=== PATIENT | female | born 1965 | race Two or more races ===

== ENCOUNTER 2023-01-21 01:03 | Inpatient (IN) | payer MEDICAID ==
[~2023-01-21] VITALS: Ht 152.4 cm; Wt 81.8 kg
[2023-01-21 01:50] LABS: Basophils # (auto) 0.1 10 ^3/uL (0-0.2); Basophils % (auto) 0.8 % (0.0-2.0); Eosinophils # (auto) 0.1 10 ^3/uL (0-0.8); Eosinophils % (auto) 0.8 % (0.0-7.0); Hematocrit 42.6 % (36.0-46.0); Hemoglobin 13.9 g/dL (12.2-16.2); Lymphocytes # (auto) 2.9 10 ^3/uL (0.4-5.4); Lymphocytes % (auto) 25.2 % (10.0-50.0); Mean Corpuscular Hemoglobin 29.8 pg (28.0-32.0); Mean Corpuscular Hgb Conc. 32.6 g/dL (32.0-36.0); Mean Corpuscular Volume 91.3 fL (80.0-100.0); Monocytes # (auto) 0.8 10 ^3/uL (0-1.3); Monocytes % (auto) 6.8 % (0.0-12.0); Neutrophils # (auto) 7.7 10 ^3/uL (1.6-8.6); Neutrophils % (auto) 66.4 % (37.0-80.0); Red Blood Cells 4.67 10^6/uL (4.0-5.20); Red Cell Distribution Width 14.8 % (11.8-14.3); White Blood Cell 11.6 10^3/uL (4.4-10.8)
[2023-01-21 02:09] LABS: INR 0.94 (0.9-1.15); Partial Thromboplastin Time 26.5 SEC (24.5-34.5); Prothrombin Time 9.9 sec (9.3-11.8)
[2023-01-21 02:19] LABS: Alanine Aminotransferase 15 U/L (7-40); Albumin 4.3 g/dL (3.2-4.8); Alkaline Phosphatase 101 U/L (46-116); Anion Gap 6 (5-15); Aspartate Aminotransferase < 8 U/L (13-40); BUN/Creatinine Ratio 15.9 (10.0-20.0); Blood Urea Nitrogen 10 mg/dL (9-23); Calcium 9.1 mg/dL (8.7-10.4); Carbon Dioxide 26 mmol/L (20-30); Chloride 109 mmol/L (98-107); Glucose 114 mg/dL (74-106); Magnesium 1.9 mg/dL (1.6-2.6); Potassium 3.3 mmol/L (3.5-5.1); Sodium 141 mmol/L (136-145)
[2023-01-21 02:20] LABS: Bilirubin, Total 0.3 mg/dL (0.2-1.0); Total Protein 6.9 g/dL (5.7-8.2)
[2023-01-21] MEDS ORDERED: NITROGLYCERIN 0.4 MG SL TAB SL ONE (08:15)
[2023-01-21] MEDS ORDERED: LIDOCAINE VISCOUS 2% 15ML UD PO ONE (08:45)
[2023-01-21] MEDS ORDERED: MAALOX PLUS or MAALOX 30 ML PO ONE (08:45)
[2023-01-21] MEDS ORDERED: DONNATAL 5ml ORAL Elix (BELLADONNA ALK-PHENOBARB) PO ONE (08:45)
[2023-01-21] MEDS ORDERED: ACETAMINOPHEN 325 MG TAB PO ONE (08:45)
[2023-01-21] MEDS ORDERED: POTASSIUM EFFERVESENT TAB 25 MEQ PO ONE (12:00)
[2023-01-21] MEDS ORDERED: MORPHINE SULFATE 4 MG/ML SYR/VIAL IV PRN (12:00)
[2023-01-21] MEDS ORDERED: NITROGLYCERIN 0.4 MG SL TAB SL PRN (12:00)
[2023-01-21] MEDS ORDERED: ONDANSETRON HCL 4 MG/2 ML VIAL IV PRN (12:00)
[2023-01-21 12:27] LABS: INR 1.03 (0.9-1.15); Prothrombin Time 10.8 sec (9.3-11.8)
[2023-01-21] MEDS: ACETAMINOPHEN 325 MG TAB PO PRN (14:40)
[2023-01-21] MEDS: NICOTINE 21MG/24 HR TOPICAL PATCH TD SCH (16:59)
[2023-01-21] MEDS: HYDROcodone-ACET 5/325MG TAB PO PRN (17:00)
[2023-01-21 17:12] VITALS: PULSE 84; RESP 18; O2SAT 97
[2023-01-21 19:22] VITALS: PULSE 92; RESP 16; O2SAT 98
[2023-01-21] MEDS ORDERED: IOHEXOL 350 MG/ML 100ML IJ ONE (20:44)
[2023-01-21] MEDS: ENOXAPARIN SOD 80 MG/0.8ML SYRINGE SC SCH (21:52)
[2023-01-21] MEDS: ATORVASTATIN 20 MG TAB PO SCH (21:53)
[2023-01-22 06:14] LABS: Basophils # (auto) 0.1 10 ^3/uL (0-0.2); Basophils % (auto) 1.2 % (0.0-2.0); Eosinophils # (auto) 0.4 10 ^3/uL (0-0.8); Eosinophils % (auto) 4.7 % (0.0-7.0); Hematocrit 43.9 % (36.0-46.0); Hemoglobin 14.3 g/dL (12.2-16.2); Lymphocytes # (auto) 3.2 10 ^3/uL (0.4-5.4); Lymphocytes % (auto) 35.2 % (10.0-50.0); Mean Corpuscular Hemoglobin 30.2 pg (28.0-32.0); Mean Corpuscular Hgb Conc. 32.6 g/dL (32.0-36.0); Mean Corpuscular Volume 92.6 fL (80.0-100.0); Monocytes # (auto) 0.8 10 ^3/uL (0-1.3); Monocytes % (auto) 8.4 % (0.0-12.0); Neutrophils # (auto) 4.6 10 ^3/uL (1.6-8.6); Neutrophils % (auto) 50.5 % (37.0-80.0); Nucleated Red Blood Cells % 0.1 %; Red Blood Cells 4.75 10^6/uL (4.0-5.20); Red Cell Distribution Width 14.9 % (11.8-14.3); White Blood Cell 9.1 10^3/uL (4.4-10.8)
[2023-01-22 06:33] LABS: Alanine Aminotransferase 16 U/L (7-40); Albumin 4.1 g/dL (3.2-4.8); Alkaline Phosphatase 98 U/L (46-116); Anion Gap 6 (5-15); Aspartate Aminotransferase 10 U/L (13-40); BUN/Creatinine Ratio 10.9 (10.0-20.0); Bilirubin, Total 0.4 mg/dL (0.2-1.0); Blood Urea Nitrogen 7 mg/dL (9-23); Carbon Dioxide 26 mmol/L (20-30); Chloride 108 mmol/L (98-107); Glucose 89 mg/dL (74-106); Potassium 4.4 mmol/L (3.5-5.1); Sodium 140 mmol/L (136-145); Total Protein 6.6 g/dL (5.7-8.2)
[2023-01-22] MEDS: DOCUSATE SOD 100 MG CAP PO SCH (10:37)
[2023-01-22] MEDS: ENOXAPARIN SOD 80 MG/0.8ML SYRINGE SC SCH (10:37)
[2023-01-22] MEDS: HYDROcodone-ACET 5/325MG TAB PO PRN ×2 (10:37→20:12)
[2023-01-22] MEDS: ASPirin 81 mg TAB PO SCH (10:37)
[2023-01-22] MEDS: NICOTINE 21MG/24 HR TOPICAL PATCH TD SCH (10:38)
[2023-01-22] MEDS: ACETAMINOPHEN 325 MG TAB PO PRN ×2 (14:13→22:39)
[2023-01-22 16:30] LABS: Triglycerides 165 mg/dL (< 150)
[2023-01-22 16:31] LABS: LDL Cholesterol 124 mg/dL (< 100)
[2023-01-22 16:33] LABS: Cholesterol 190 mg/dL (< 200); HDL Cholesterol 50 mg/dL (40-59)
[2023-01-22 19:30] VITALS: PULSE 97; RESP 20; O2SAT 95
[2023-01-22] MEDS: ATORVASTATIN 20 MG TAB PO SCH (22:24)
[2023-01-22] MEDS: ENOXAPARIN SOD 40 MG/0.4 ML SYRINGE SC SCH (22:42)
[2023-01-23] MEDS: HYDROcodone-ACET 5/325MG TAB PO PRN ×2 (07:04→14:39)
[2023-01-23] MEDS ORDERED: ADENOSINE 69 MG in GIVE UN-DILUTED 0 ML IV STA (07:48)
[2023-01-23 07:50] VITALS: PULSE 68; RESP 15; O2SAT 97
[2023-01-23] MEDS ORDERED: PANTOPRAZOLE 40 MG/10 ML VIAL INJ IV SCH (10:00)
[2023-01-23] MEDS: ASPirin 81 mg TAB PO SCH (10:48)
[2023-01-23] MEDS: DOCUSATE SOD 100 MG CAP PO SCH (10:48)
[2023-01-23] MEDS: ENOXAPARIN SOD 40 MG/0.4 ML SYRINGE SC SCH (10:48)
[2023-01-23] MEDS: NICOTINE 21MG/24 HR TOPICAL PATCH TD SCH (10:54)
[2023-01-23 15:17] VITALS: BP 104/68; PULSE 69; RESP 18; TEMP 97; O2SAT 97
== END 2023-01-23 15:28 | disposition home or self-care (01) | DRG 203 ==
LOC: EDBD 01:03 → ER 01:03 → TELE 12:03
PROVIDERS: ADMIT Nurse Practitioner Family; ATTEND Internal Medicine Geriatric Medicine
DX: R07.89 Other chest pain (principal); D72.829 Elevated white blood cell count, unspecified; E66.9 Obesity, unspecified; E87.6 Hypokalemia; F17.210 Nicotine dependence, cigarettes, uncomplicated; M79.7 Fibromyalgia; Z68.35 Body mass index [BMI] 35.0-35.9, adult; E78.2 Mixed hyperlipidemia; J45.909 Unspecified asthma, uncomplicated; Z90.710 Acquired absence of both cervix and uterus; Z90.49 Acquired absence of other specified parts of digestive tract
CPT/HCPCS: 36415; 71045; 71275; 78452; 80053; 80061; 83036; 83690; 83735; 83880; 84443; 84484; 85025; 85379; 85610; 85730; 93005; 93017; 93306; C9113; G0378; J0153